=== PATIENT | female | born 1995 | race Caucasian/White ===

== ENCOUNTER 2017-04-19 21:16 | Emergency (ER) | payer BC ==
[2017-04-19 21:43] VITALS: BP 120/72
--- NOTE | 2017-04-19 21:51 | UC ---
HPI Febrile Illness - HPI Summary HPI Summary: 21 year old female for flu like illness. - History of Current Complaint Chief Complaint: UCRespiratory Time Seen by Provider: 04/19/17 21:25 Hx Obtained From: Patient Hx Last Menstrual Period: 04/01/17 Timing: Constant Initial Severity: Moderate Alleviating Factors: Nothing - Allergy/Home Medications Allergies/Adverse Reactions: Allergies Allergy/AdvReac Type Severity Reaction Status Date / Time No Known Allergies Allergy Verified 04/19/17 21:35 Home Medications: Home Medications Ibuprofen TAB* [Advil TAB*] 200 mg PO Q6H PRN 04/19/17 [History Confirmed ] Norethin Acet & Estrad-Fe [Lind[place] Fe 1.530] 1 tab PO DAILY 04/19/17 [History Confirmed 04/19/17] Pseudoephedrine TAB* [Sudafed TAB*] 30 mg PO Q6H PRN 04/19/17 [History Confirmed 04/19/17] PMH/Surg Hx/FS Hx/Imm Hx Previously Healthy: Yes - Surgical History Surgical History: Yes Surgery Procedure, Year, and Place: LEFT SHOULDER SURGERY, MAY 2015 - Social History Occupation: Student Alcohol Use: None Substance Use Type: None Smoking Status (MU): Never Smoked Tobacco - Immunization History Most Recent Influenza Vaccination: NO Review of Systems Constitutional: Fever, Chills, Fatigue Eyes: Eye Redness ENT: Nasal Discharge Is Patient Immunocompromised?: No All Other Systems Reviewed And Are Negative: Yes Physical Exam Triage Information Reviewed: Yes Appearance: Well-Appearing, No Pain Distress, Well-Nourished Vital Signs: Initial Vital Signs Temp 101.4 F 04/19/17 21:36 Pulse 99 04/19/17 21:36 Resp 20 04/19/17 21:36 BP 120/72 04/19/17 21:36 Pulse Ox 99 04/19/17 21:36 Vital Signs Reviewed: Yes Eye Exam: Normal ENT Exam: Normal Respiratory Exam: Normal Cardiovascular Exam: Normal Musculoskeletal Exam: Normal Neurological Exam: Normal Psychological Exam: Normal Skin Exam: Normal
[2017-04-19] MEDS ORDERED: Ibuprofen TAB* 400 MG PO ONE (22:08)
--- NOTE | 2017-04-19 22:18 | UC ---
HPI Febrile Illness - HPI Summary HPI Summary: Pt c/o sudden onset of fever chills last night. Pt is concerned that she may have the flu. Pt denies sore throat,, cough and nasal congestion - History of Current Complaint Chief Complaint: UCRespiratory Time Seen by Provider: 04/19/17 21:25 Hx Obtained From: Patient Hx Last Menstrual Period: 04/01/17 Onset/Duration: Started Hours Ago Timing: Constant Initial Severity: Mild Current Severity: Mild Aggravating Factors: Unknown Alleviating Factors: OTC Medicine Associated Signs and Symptoms: Chills, Dizziness, Headache, Myalgia - Risk Factors Pseudomonas Risk Factors: Negative Serious Bacterial Infection Risk Factors: Negative - Allergy/Home Medications Allergies/Adverse Reactions: Allergies Allergy/AdvReac Type Severity Reaction Status Date / Time No Known Allergies Allergy Verified 04/19/17 21:35 Home Medications: Home Medications Ibuprofen TAB* [Advil TAB*] 200 mg PO Q6H PRN 04/19/17 [History Confirmed ] Norethin Acet & Estrad-Fe [[place] Fe 1.5/30] 1 tab PO DAILY 04/19/17 [History Confirmed 04/19/17] Pseudoephedrine TAB* [Sudafed TAB*] 30 mg PO Q6H PRN 04/19/17 [History Confirmed 04/19/17] PMH/Surg Hx/FS Hx/Imm Hx Previously Healthy: Yes - Surgical History Surgical History: Yes Surgery Procedure, Year, and Place: LEFT SHOULDER SURGERY, MAY 2015 - Family History Known Family History: Positive: Cardiac Disease - Social History Occupation: Student Lives: Dormitory/Roommates Alcohol Use: None Substance Use Type: None Smoking Status (MU): Never Smoked Tobacco - Immunization History Most Recent Influenza Vaccination: NO Review of Systems Constitutional: Negative, Fever, Chills, Fatigue Skin: Negative Eyes: Negative ENT: Negative Respiratory: Negative Cardiovascular: Negative Gastrointestinal: Negative Genitourinary: Negative Motor: Negative Neurovascular: Negative Musculoskeletal: Myalgia Neurological: Negative Psychological: Negative Is Patient Immunocompromised?: No All Other Systems Reviewed And Are Negative: Yes Physical Exam Triage Information Reviewed: Yes Appearance: Well-Appearing Vital Signs: Initial Vital Signs Temp 101.4 F 04/19/17 21:36 Pulse 99 04/19/17 21:36 Resp 20 04/19/17 21:36 BP 120/72 04/19/17 21:36 Pulse Ox 99 04/19/17 21:36 Vital Signs Reviewed: Yes Eye Exam: Normal ENT Exam: Normal Dental Exam: Normal Neck exam: Normal Respiratory Exam: Normal Cardiovascular Exam: Normal Musculoskeletal Exam: Normal Neurological Exam: Normal Psychological Exam: Normal Skin Exam: Normal Course/Dx - Febrile Illness Differential Diagnoses: Fever of Unknown Origin, Other: - influenza - Diagnoses Clinic Provider Diagnoses: fever unknown origin. viral syndrome Discharge - Discharge Plan Condition: Stable Disposition: HOME Patient Education Materials: Fever in Adults (ED), Viral Syndrome (ED), Dizziness (ED) Referrals: Non Staff,Doctor [Primary Care Provider] - If Needed
== END 2017-04-19 22:31 | disposition home or self-care (01) ==
LOC: UCCORT 21:16
DX: R50.9 Fever, unspecified (principal); B34.9 Viral infection, unspecified
CPT/HCPCS: 87502; 99202; A9270-GY; G0463